=== PATIENT | female | born 1945 | race Two or more races ===

== ENCOUNTER 2020-03-06 11:25 | Outpatient (CLI) | payer MEDICARE | END 2020-03-06 23:59 | disposition home or self-care (01) | LOC: WOU 11:25 | PROVIDERS: ATTEND Specialist | DX: I87.2 Venous insufficiency (chronic) (peripheral) (principal); L03.116 Cellulitis of left lower limb; L88 Pyoderma gangrenosum; L97.322 Non-pressure chronic ulcer of left ankle with fat layer exposed; L97.328 Non-pressure chronic ulcer of left ankle with other specified severity; L97.319 Non-pressure chronic ulcer of right ankle with unspecified severity; I10 Essential (primary) hypertension; C50.919 Malignant neoplasm of unspecified site of unspecified female breast; Z79.899 Other long term (current) drug therapy | CPT/HCPCS: 93971; G0463 ==